=== PATIENT | female | born 1985 | race Hispanic/Latino ===

== ENCOUNTER 2017-11-06 13:41 | Emergency (ER) | payer SELFPAY ==
[~2017-11-06 13:41] MED LIST: CYAN500 PO; FERR325C PO; FOLI0.4T2 PO; INSU100V3 SQ; NPH,100V SQ; PANCREATIC ENZYMES PO
[2017-11-06 14:16] LABS: APPEARANCE,URINE Clear (CLEAR); BILIRUBIN,URINE Negative (NEGATIVE); COLOR,URINE Yellow (YELLOW); GLUCOSE, URINE (UA) >=1000 mg/dL (NEGATIVE); KETONES,URINE Negative (NEGATIVE); LEUKOCYTE ESTERASE ,URINE Trace (NEGATIVE); NITRATE,URINE Negative (NEGATIVE); OCCULT BLOOD,URINE Negative (NEGATIVE); PH,URINE 5.5 (5.0-8.0); PROTEIN,URINE Trace (NEGATIVE); UROBILINOGEN,URINE 0.2 mg/dL (0.2-1.0)
[2017-11-06 14:20] LABS: RBC,URINE 0-1 /HPF (0-1)
[2017-11-06 14:21] LABS: BACTERIA,URINE Rare /HPF (None Seen); SQUAMOUS EPITHELIAL CELL,UR Rare /HPF (0-2)
== END 2017-11-06 15:05 | disposition home or self-care (01) ==
LOC: EDH 13:41
DX: S31.41XD Laceration without foreign body of vagina and vulva, subsequent encounter (principal); E11.9 Type 2 diabetes mellitus without complications; Z91.013 Allergy to seafood; Z91.018 Allergy to other foods; Z98.890 Other specified postprocedural states; Z90.49 Acquired absence of other specified parts of digestive tract; Z87.891 Personal history of nicotine dependence; X58.XXXD Exposure to other specified factors, subsequent encounter
CPT/HCPCS: 81001

== ENCOUNTER 2018-03-26 20:35 | Inpatient (IN) | payer OTHER ==
[~2018-03-26] VITALS: Ht 154.9 cm; Wt 53.5 kg
[2018-03-26 20:56] LABS: ABG BASE EXCESS -6.2 mmol/L (-2.0-3.0); ABG HCO3 18.1 mmol/L (21.0-28.0); ABG OXYGEN SATURATION 97.1 % (95.0-99.0); ABG PCO2 31 mmHg (32-45)
[2018-03-26 21:13] LABS: BASOPHILS % (AUTO) 0.5 % (0.0-5.0); EOSINOPHILS % (AUTO) 1.1 % (0.0-8.0); HEMATOCRIT 27.2 % (36-48); LYMPHOCYTES % (AUTO) 7.9 % (21.0-51.0); MEAN CORPUSCULAR HEMOGLOBIN 27.5 pg (27.0-33.0); MEAN CORPUSCULAR HGB CONC 29.8 g/dL (32.0-36.0); MEAN CORPUSCULAR VOLUME 92.5 fL (79-99); MONOCYTES % (AUTO) 6.6 % (3.0-13.0); NEUTROPHILS % (AUTO) 83.9 % (40.0-77.0); PLATELET COUNT (AUTO) 276 K/uL (130-400); RED BLOOD CELL COUNT(AUTO) 2.94 MIL/uL (4.00-5.50); RED CELL DISTRIBUTION WIDTH 13.5 % (11.0-15.5); WHITE BLOOD COUNT (AUTO) 5.6 K/uL (4.8-10.8)
[2018-03-26] MEDS ORDERED: SODIUM CHLORIDE 0.9% 1000ML 2,000 ML IV ONE (21:13)
[2018-03-26] MEDS ORDERED: PROCHLORPERAZINE EDISYLATE 10 MG/2 ML VIAL ONE (21:13)
[2018-03-26 21:41] LABS: ALBUMIN 2.1 g/dL (3.5-5.0); BILIRUBIN,DIRECT 0.1 mg/dL (0.0-0.3); BILIRUBIN,TOTAL 0.5 mg/dL (0.2-1.0); CREATININE 1.5 mg/dL (0.5-1.5); POTASSIUM 5.7 mmol/L (3.5-5.1); TOTAL PROTEIN, SERUM 7.3 g/dL (6.0-8.3)
[2018-03-26] MEDS ORDERED: DEXTROSE 5 %-0.45 % NACL 1,000 ML IV PRN (23:29)
[2018-03-26] MEDS ORDERED: SODIUM CHLORIDE 0.9% 1000ML 1,000 ML IV SCH (23:29)
[2018-03-26] MEDS: SODIUM CHLORIDE 0.9% 1000ML 1,000 ML IV SCH (23:29)
[2018-03-26] MEDS ORDERED: INSULIN HUMULIN R 100 UNIT/ML 3ML IV SCH (23:30)
[2018-03-26] MEDS ORDERED: POTASSIUM CHLORIDE 10MEQ/100ML 100 ML IV PRN (23:30)
[2018-03-26] MEDS ORDERED: INSULIN HUMULIN R 100 UNIT/ML 3ML ONE (23:45)
[2018-03-26] MEDS ORDERED: ONDANSETRON HCL 4 MG/2 ML VIAL IV PRN (23:45)
[2018-03-26] MEDS ORDERED: ACETAMINOPHEN 325 MG TAB PO PRN (23:45)
[2018-03-26 23:52] LABS: PHOSPHORUS 3.2 mg/dL (2.5-4.9)
[2018-03-27] VITALS (12 sets, daily range): BP systolic 71–85; BP diastolic 43–55
[2018-03-27 00:03] LABS: ACETONE,BLOOD NEGATIVE (NEGATIVE)
[2018-03-27] MEDS ORDERED: INSULIN HUMULIN R 100 UNIT/ML 3ML ONE (00:05)
[2018-03-27] MEDS ORDERED: MAGNESIUM 2GM PREMIX 50ML 50 ML IV ONE ×2 (00:22→05:02)
[2018-03-27] MEDS ORDERED: CEFTRIAXONE SODIUM 1 GM ONE ×2 (00:23→01:53)
[2018-03-27 00:57] LABS: APPEARANCE,URINE Cloudy (CLEAR); BILIRUBIN,URINE Negative (NEGATIVE); COLOR,URINE Yellow (YELLOW); GLUCOSE, URINE (UA) >=1000 mg/dL (NEGATIVE); KETONES,URINE Negative (NEGATIVE); LEUKOCYTE ESTERASE ,URINE Negative (NEGATIVE); NITRATE,URINE Negative (NEGATIVE); OCCULT BLOOD,URINE Negative (NEGATIVE); PH,URINE 5.5 (5.0-8.0); PROTEIN,URINE POS 1+ (NEGATIVE); UROBILINOGEN,URINE 0.2 mg/dL (0.2-1.0)
[2018-03-27] MEDS ORDERED: AZITHROMYCIN 500MG+NS 250ML 250 ML IV SCH (01:00)
[2018-03-27 01:04] LABS: AMPHET/METH SCREEN,URINE NEGATIVE (NEGATIVE); BARBITURATE SCREEN, URINE NEGATIVE (NEGATIVE); BENZODIAZEPINES SCREEN,URINE POSITIVE (NEGATIVE); CANNABINOID SCREEN,URINE POSITIVE (NEGATIVE); COCAINE SCREEN,URINE NEGATIVE (NEGATIVE); OPIATE SCREEN,URINE NEGATIVE (NEGATIVE); PHENCYCLIDINE SCREEN,URINE NEGATIVE (NEGATIVE)
[2018-03-27 01:05] LABS: BACTERIA,URINE None Seen /HPF (None Seen); RBC,URINE None Seen /HPF (0-1); WBC,URINE None Seen /HPF (0-1)
[2018-03-27 01:06] LABS: AMORPHOUS SEDIMENT,UR Few /LPF (None Seen); SQUAMOUS EPITHELIAL CELL,UR Few /HPF (0-2)
[2018-03-27] MEDS ORDERED: AZITHROMYCIN 500MG+NS 250ML 250 ML IV ONE (01:51)
[2018-03-27 02:32] LABS: HEMATOCRIT 22.2 % (36-48); MEAN CORPUSCULAR HEMOGLOBIN 27.1 pg (27.0-33.0); MEAN CORPUSCULAR HGB CONC 31.5 g/dL (32.0-36.0); MEAN CORPUSCULAR VOLUME 85.9 fL (79-99); NUCLEATED RED BLOOD CELLS 0.1 % (0.0-0.19); PLATELET COUNT (AUTO) 223 K/uL (130-400); RED BLOOD CELL COUNT(AUTO) 2.59 MIL/uL (4.00-5.50); RED CELL DISTRIBUTION WIDTH 12.8 % (11.0-15.5); WHITE BLOOD COUNT (AUTO) 3.6 K/uL (4.8-10.8)
[2018-03-27 02:39] LABS: CREATININE 1.2 mg/dL (0.5-1.5); MAGNESIUM 1.6 mg/dL (1.80-2.40); POTASSIUM 3.3 mmol/L (3.5-5.1)
[2018-03-27 02:53] LABS: ABG BASE EXCESS -7.2 mmol/L (-2.0-3.0); ABG HCO3 17.1 mmol/L (21.0-28.0); ABG OXYGEN SATURATION 99.5 % (95.0-99.0); ABG PCO2 32 mmHg (32-45)
[2018-03-27] MEDS ORDERED: POTASSIUM PHOS 15 mMOL+NS250ML 250 ML IV SCH (03:00)
[2018-03-27 04:17] LABS: % IRON SATURATION 14.8 % (22-44)
[2018-03-27 04:23] LABS: BAND NEUTROPHILS % (MANUAL) 7 % (0-2); BASOPHILS % (MANUAL) 1 % (0-2); EOSINOPHILS % (MANUAL) 1 % (1-6); LYMPHOCYTES % (MANUAL) 17 % (22-44); SEGMENTED NEUTROPHILS % 74 % (40-70)
[2018-03-27 04:26] LABS: MAN.DIFF COMMENT-IMPRESSION MANUAL DIFFERENTIAL; PLATELET MORPHOLOGY COMMENT ADEQUATE
[2018-03-27] MEDS: SODIUM CHLORIDE 0.9% 1000ML 1,000 ML IV SCH ×4 (04:29→20:22)
[2018-03-27] MEDS ORDERED: POTASSIUM CHLORIDE 20MEQ/100ML 100 ML IV ONE (05:02)
[2018-03-27] MEDS ORDERED: LIDOCAINE HCL 1% 20 ML VIAL ONE (05:24)
[2018-03-27] MEDS ORDERED: INSULIN REGULAR, HUMAN 3ML 100 UNIT in SODIUM CHLORIDE 0.9% 99 ML IV PRN ×2 (06:45)
[2018-03-27] MEDS ORDERED: IBUPROFEN 800 MG TAB ONE (08:34)
[2018-03-27] MEDS ORDERED: FAMOTIDINE/PF 20 MG/2 ML VIAL IV ONE (08:36)
[2018-03-27] MEDS ORDERED: ENOXAPARIN SODIUM 30 MG/0.3 ML SQ ONE (08:36)
[2018-03-27] MEDS ORDERED: PREGABALIN 25 MG CAP ONE (08:37)
[2018-03-27] MEDS ORDERED: LIDOCAINE 5% TOPICAL PATCH TP ONE (08:37)
[2018-03-27] MEDS: FAMOTIDINE/PF 20 MG/2 ML VIAL IV SCH ×2 (09:00→20:07)
[2018-03-27] MEDS: ENOXAPARIN SODIUM 30 MG/0.3 ML SQ SCH (09:00)
[2018-03-27 09:26] LABS: HEMATOCRIT 22.7 % (36-48)
[2018-03-27 09:27] LABS: CREATININE 0.8 mg/dL (0.5-1.5); MAGNESIUM 1.9 mg/dL (1.80-2.40); PHOSPHORUS 1.8 mg/dL (2.5-4.9); POTASSIUM 3.6 mmol/L (3.5-5.1)
[2018-03-27] MEDS: IRON SUCROSE COMPLEX 100 MG in SODIUM CHLORIDE 0.9% 50 ML IV SCH (09:28)
[2018-03-27] MEDS: LIDOCAINE 5% TOPICAL PATCH TP SCH (09:28)
[2018-03-27] MEDS ORDERED: PREGABALIN 75 MG CAPSULE PO SCH (09:29)
[2018-03-27] MEDS ORDERED: EPOETIN ALFA 10,000 UNIT/ML VIAL SQ NR (09:30)
[2018-03-27] MEDS ORDERED: INSULIN GLARGINE 100 UNITS/ML 10 ML VIAL SQ SCH (09:45)
[2018-03-27] MEDS ORDERED: IBUPROFEN 800 MG TAB PO PRN (09:45)
[2018-03-27] MEDS ORDERED: SODIUM CHLORIDE 0.9% 50 ML IV ONE (10:04)
[2018-03-27] MEDS: PREGABALIN 25 MG CAP PO SCH (10:46)
[2018-03-27 10:52] LABS: ABG BASE EXCESS -6.3 mmol/L (-2.0-3.0); ABG HCO3 17.5 mmol/L (21.0-28.0); ABG OXYGEN SATURATION 98.3 % (95.0-99.0); ABG PCO2 30 mmHg (32-45)
[2018-03-27] MEDS: INSULIN LISPRO 100 UNIT/ML 3ML SQ SCH ×2 (11:30→17:00)
[2018-03-27] MEDS ORDERED: SODIUM CHLORIDE 0.9% 1000ML 1,000 ML IV ONE (11:36)
[2018-03-27] MEDS ORDERED: VANCOMYCIN PROTOCOL PER PHARMACY IV PRN (13:45)
[2018-03-27] MEDS: ASCORBIC ACID 500 MG TAB PO SCH (13:45)
[2018-03-27] MEDS ORDERED: MIDODRINE HCL 5 MG TABLET ONE (13:54)
[2018-03-27] MEDS: MIDODRINE HCL 5 MG TABLET PO SCH ×2 (14:00→20:07)
[2018-03-27] MEDS ORDERED: VANCOMYCIN 1GM+NS 250ML 250 ML IV ONE (14:56)
[2018-03-27] MEDS ORDERED: VANCOMYCIN 1GM+NS 250ML 250 ML IV SCH (15:00)
[2018-03-27] MEDS ORDERED: COMPOUND IV REFRIGERATED 1 EACH IVSOLN MISC PRN (15:15)
[2018-03-27 15:28] LABS: INR 1.02 (0.85-1.15); PARTIAL THROMBOPLASTIN TIME 35.8 SEC (26.3-35.5); PROTHROMBIN TIME 10.7 SEC (9.6-11.6)
[2018-03-27 15:33] LABS: CREATININE 0.7 mg/dL (0.5-1.5); MAGNESIUM 1.7 mg/dL (1.80-2.40)
[2018-03-27 16:22] LABS: ABG BASE EXCESS -8.2 mmol/L (-2.0-3.0); ABG HCO3 16.2 mmol/L (21.0-28.0); ABG OXYGEN SATURATION 98.1 % (95.0-99.0); ABG PCO2 31 mmHg (32-45)
[2018-03-27] MEDS ORDERED: INSREG SQ (16:26)
[2018-03-27] MEDS ORDERED: LIPA1CAP36 PO (16:26)
[2018-03-27] MEDS ORDERED: METO5TAB2 PO (16:26)
[2018-03-27] MEDS ORDERED: MIRT15TA6 PO (16:26)
[2018-03-27] MEDS ORDERED: [UNRECOGNIZED DRUG - REMARK] PO (16:26)
[2018-03-27] MEDS ORDERED: NPH,100V11 SQ (16:26)
[2018-03-27] MEDS: LIPASE/PROTEASE/AMYLASE 5000/17000/24000 PO SCH (17:00)
[2018-03-27] MEDS ORDERED: DEXTROSE 50%-WATER 25 GM/50 ML VIAL ONE (18:38)
[2018-03-27] MEDS: ZOSYN 3.375GM+NS 50ML 50 ML IV SCH (18:53)
[2018-03-27] MEDS: METOCLOPRAMIDE 10 MG/2 ML VIAL IVP SCH (18:53)
[2018-03-27] MEDS: INSULIN GLARGINE 100 UNITS/ML 10 ML VIAL SQ SCH (19:39)
[2018-03-27] MEDS ORDERED: CEFTRIAXONE SODIUM 1 GM IVP SCH (21:00)
[2018-03-27 21:34] LABS: CREATININE 0.6 mg/dL (0.5-1.5); MAGNESIUM 1.5 mg/dL (1.80-2.40); PHOSPHORUS 2.8 mg/dL (2.5-4.9); POTASSIUM 3.7 mmol/L (3.5-5.1)
[2018-03-27] MEDS: VANCOMYCIN 750MG + NS 250 ML IV SCH ×2 (22:12)
[2018-03-28] VITALS (28 sets, daily range): BP systolic 74–125; BP diastolic 42–75
[2018-03-28] MEDS: ZOSYN 3.375GM+NS 50ML 50 ML IV SCH ×3 (02:31→17:57)
[2018-03-28] MEDS: SODIUM CHLORIDE 0.9% 1000ML 1,000 ML IV SCH ×3 (02:43→17:57)
[2018-03-28 04:01] LABS: THYROID STIMULATING HORMONE 4.47 uIU/mL (0.36-3.74)
[2018-03-28] MEDS: METOCLOPRAMIDE 10 MG/2 ML VIAL IVP SCH ×3 (06:16→16:22)
[2018-03-28] MEDS: VANCOMYCIN 750MG + NS 250 ML IV SCH ×4 (06:16→16:22)
[2018-03-28] MEDS ORDERED: DEXTROSE 50%-WATER 25 GM/50 ML VIAL ONE (06:29)
[2018-03-28] MEDS: INSULIN LISPRO 100 UNIT/ML 3ML SQ SCH ×3 (06:40→16:22)
[2018-03-28] MEDS: LIPASE/PROTEASE/AMYLASE 5000/17000/24000 PO SCH ×3 (07:30→16:22)
[2018-03-28 08:13] LABS: MEAN CORPUSCULAR HEMOGLOBIN 26.3 pg (27.0-33.0); MEAN CORPUSCULAR HGB CONC 31.7 g/dL (32.0-36.0); PLATELET COUNT (AUTO) 298 K/uL (130-400); RED BLOOD CELL COUNT(AUTO) 2.45 MIL/uL (4.00-5.50); RED CELL DISTRIBUTION WIDTH 12.6 % (11.0-15.5); WHITE BLOOD COUNT (AUTO) 3.8 K/uL (4.8-10.8)
[2018-03-28 08:16] LABS: HEMATOCRIT 20.4 % (36-48)
[2018-03-28 08:29] LABS: ALBUMIN 1.4 g/dL (3.5-5.0); BILIRUBIN,TOTAL 0.1 mg/dL (0.2-1.0); CREATININE 0.5 mg/dL (0.5-1.5); MAGNESIUM 1.2 mg/dL (1.80-2.40); POTASSIUM 3.5 mmol/L (3.5-5.1); TOTAL PROTEIN, SERUM 5.3 g/dL (6.0-8.3)
[2018-03-28] MEDS: MIDODRINE HCL 5 MG TABLET PO SCH ×3 (09:00→19:39)
[2018-03-28] MEDS ORDERED: IOHEXOL-350 50ML VIAL IV ONE (10:00)
[2018-03-28] MEDS: LIDOCAINE 5% TOPICAL PATCH TP SCH (10:30)
[2018-03-28] MEDS: FAMOTIDINE/PF 20 MG/2 ML VIAL IV SCH ×2 (10:30→19:39)
[2018-03-28] MEDS: PREGABALIN 25 MG CAP PO SCH (12:19)
[2018-03-28] MEDS: MAGNESIUM 2GM PREMIX 50ML 50 ML IV PRN (12:19)
[2018-03-28] MEDS: MEGESTROL 400 MG/10 ML UDCUP PO SCH (12:19)
[2018-03-28] MEDS: ASCORBIC ACID 500 MG TAB PO SCH (12:32)
[2018-03-28] MEDS: ENOXAPARIN SODIUM 30 MG/0.3 ML SQ SCH (12:33)
[2018-03-28] MEDS: IRON SUCROSE COMPLEX 100 MG in SODIUM CHLORIDE 0.9% 50 ML IV SCH (14:02)
--- NOTE | 2018-03-28 16:05 | NUR ---
Unable to fax Vanco trough to Pharmacy, Called Pharmacist directly and reported trough, pharmacist will review chart.
--- NOTE | 2018-03-28 16:38 | NUR ---
RD Notification Patient with severe malnutrition with Hx of pancreatitis and DM. Patient NPO at time of screen;Rec to advance diet to 75gm CCD, Low Fat. Patient BMI 15.5, Alb 1.4; Rec protein supplementation secondary to severe malnutrition; 30mL ProMod TID. RD provided dietary education and handouts for DM diet and Pancreatitis. RD to continue to monitor. Please notify RD as nutritional concerns arise. Thank you. Addendum: 03/28/18 at [address] RD Amended: Links added.
--- NOTE | 2018-03-28 16:45 | NUR ---
Diet Education RD Provided Diabetes and Pancreatitis Diet education to patient and patient family. Patient with pertinent questions. RD provided answer to questions and reference materials and handouts for patient review. RD to follow-up. Please notify RD as nutritional concerns arise. Thank you. Addendum: 03/28/18 at [address] RD Amended: Links added.
[2018-03-28] MEDS: THIAMINE HCL 100 MG/ML 2ML VIAL IVP SCH (17:57)
[2018-03-28] MEDS: INSULIN GLARGINE 100 UNITS/ML 10 ML VIAL SQ SCH (20:26)
[2018-03-29] VITALS (24 sets, daily range): BP systolic 77–123; BP diastolic 49–74
[2018-03-29] MEDS: SODIUM CHLORIDE 0.9% 1000ML 1,000 ML IV SCH ×3 (00:41→21:04)
[2018-03-29] MEDS: VANCOMYCIN 750MG + NS 250 ML IV SCH ×4 (02:10→14:22)
[2018-03-29] MEDS: ZOSYN 3.375GM+NS 50ML 50 ML IV SCH ×3 (02:10→17:24)
[2018-03-29 05:44] LABS: HEMATOCRIT 21.5 % (36-48); MEAN CORPUSCULAR HEMOGLOBIN 27.2 pg (27.0-33.0); MEAN CORPUSCULAR HGB CONC 32.7 g/dL (32.0-36.0); MEAN CORPUSCULAR VOLUME 83.4 fL (79-99); NUCLEATED RED BLOOD CELLS 0.1 % (0.0-0.19); PLATELET COUNT (AUTO) 296 K/uL (130-400); RED BLOOD CELL COUNT(AUTO) 2.58 MIL/uL (4.00-5.50); RED CELL DISTRIBUTION WIDTH 12.6 % (11.0-15.5); WHITE BLOOD COUNT (AUTO) 3.5 K/uL (4.8-10.8)
[2018-03-29 05:56] LABS: CREATININE 0.7 mg/dL (0.5-1.5); MAGNESIUM 1.3 mg/dL (1.80-2.40); PHOSPHORUS 1.7 mg/dL (2.5-4.9); POTASSIUM 3.8 mmol/L (3.5-5.1)
[2018-03-29] MEDS: KETOROLAC TROMETHAMINE 15MG/ML IV SCH (06:05)
[2018-03-29] MEDS: METOCLOPRAMIDE 10 MG/2 ML VIAL IVP SCH ×3 (06:05→16:49)
[2018-03-29] MEDS: INSULIN LISPRO 100 UNIT/ML 3ML SQ SCH ×3 (06:08→16:50)
--- NOTE | 2018-03-29 07:00 | NUR ---
PT RECEIVED IN BED, AAOX4, NO ACUTE DISTRESS NOTED. PT WITH C/O IZABELA Addendum: 03/29/18 at 1510 by DAISY PARRISH RN RN PATIENT WITH C/O ABDOMINAL PAIN, STATES THE TORADOL SHE RECEIVED DID NOT HELP RELIEVE THE PAIN. INFORMED HER I WILL INFORM . HARESH DISCUSSED WITH PATIENT, INCLUDING OBTAINING ORDER TO REMOVE IRAHETA CATHETER AND PHYSICAL THERAPY EVALUATION. CALL RAMIREZ IS WITHIN REACH, WILL CONT TO MONITOR. ON TELE SR TO ST 100[facility].
[2018-03-29] MEDS: LIPASE/PROTEASE/AMYLASE 5000/17000/24000 PO SCH ×3 (07:46→16:49)
[2018-03-29] MEDS: FAMOTIDINE/PF 20 MG/2 ML VIAL IV SCH ×2 (07:47→21:07)
[2018-03-29] MEDS: IRON SUCROSE COMPLEX 100 MG in SODIUM CHLORIDE 0.9% 50 ML IV SCH ×2 (07:47→19:00)
[2018-03-29] MEDS: ASCORBIC ACID 500 MG TAB PO SCH (07:47)
--- NOTE | 2018-03-29 08:43 | NUR ---
MD ROUNDS DR. SANTACRUZ IN TO SEE PATIENT. POC DISCUSSED WITH MD. ADDRESSED F/C, SEVERE ABDOMINAL PAIN 11/21 PER PATIENT. STATES TORADOL DID NOT WORK TO RELIEVE PAIN. PATIENT ASKING FOR DILAUDID 1 MG IV. NEW ORDERS RECEIVED TO BE CARRIED OUT.
--- NOTE | 2018-03-29 08:59 | NUR ---
DC PLAN VISITED WITH PATIENT. PATIENT LIVES WITH SPOUSE AND MOTHER. PATIENT HAS WALKER AND SHOWER CHAIR AVAILABLE. NO SERVICES. FEELS SAFE TO RETURN HOME. Addendum: 03/29/18 at 0900 by JACOBY CARIAS RN CM Amended: Links added.
[2018-03-29] MEDS ORDERED: HYDROMORPHONE HCL 2 MG/ML VIAL IVP PRN (09:00)
[2018-03-29] MEDS: ENOXAPARIN SODIUM 30 MG/0.3 ML SQ SCH (09:00)
--- NOTE | 2018-03-29 09:00 | NUR ---
IRAHETA CATHETER REMOVED. PT IS D/T VOID BY 1500.
[2018-03-29] MEDS: PREGABALIN 25 MG CAP PO SCH (09:35)
[2018-03-29] MEDS: LIDOCAINE 5% TOPICAL PATCH TP SCH (09:35)
[2018-03-29] MEDS: MEGESTROL 400 MG/10 ML UDCUP PO SCH (09:36)
[2018-03-29] MEDS: MAGNESIUM OXIDE 400 MG TABLET PO SCH (09:36)
[2018-03-29] MEDS: MIDODRINE HCL 5 MG TABLET PO SCH ×3 (09:36→21:07)
[2018-03-29] MEDS: THIAMINE HCL 100 MG/ML 2ML VIAL IVP SCH (09:36)
[2018-03-29] MEDS: NEUTRA-PHOS PACKET 1 EACH PO SCH ×4 (09:38→21:11)
[2018-03-29] MEDS: MAGNESIUM 2GM PREMIX 50ML 50 ML IV PRN (09:39)
[2018-03-29] MEDS: HYDROMORPHONE 1 MG/1 ML AMP IVP PRN ×2 (10:18→18:45)
--- NOTE | 2018-03-29 10:29 | NUR ---
[facility] CONSULT PATIENT ASSESSED ORDERED. PATIENT WITH DRY, FLAKY SCABS TO SCALP LIKELY TINEA CAPITUS. SPOKE WITH PATIENT'S NURSE, ADIA GONZALES, WHO WILL DISCUSS WITH MD FOR TREATMENT. PATIENT ALSO HAS REDNESS, RASH TO PERINEUM EXTENDING NEAR COCCYX AREA WHICH SHE RELATES TO CONSTANT DIARRHEA. SACRUM AND COCCYX ARE PINK BUT BLANCHABLE; NO OPEN ULCER IDENTIFIED. [facility] RECOMMENDATION FOR ALLEVYN LIFE FOAM FOR PROTECTIVE MEASURE.
[2018-03-29] MEDS: ERGOCALCIFEROL (VITAMIN D2) 50,000 UNIT CAPSULE PO SCH (13:41)
--- NOTE | 2018-03-29 17:39 | NUR ---
SPOKE WITH DR. GARCÍA REGARDING DR. SANTACRUZ CONCERNS REGARDING FREQUENT LOOSE STOOLS. POSSIBLE EUS AND COLONOSCOPY ON SUNDAY PENDING FECAL ELASTASE LAB. STATES SHE WILL BE IN LATER TODAY TO SEE PATIENT.
--- NOTE | 2018-03-29 19:25 | NUR ---
DR RICKY GARCÍA INTO SEE PT, SEE ORDERS.
[2018-03-29] MEDS: INSULIN GLARGINE 100 UNITS/ML 10 ML VIAL SQ SCH (21:00)
--- NOTE | 2018-03-29 21:00 | NUR ---
ASSESSMENT PT RESTING QUIETLY IN BED. FAMILY AT BEDSIDE. PT AAOX4. IVF INFUSING WITHOUT DIFFICULTY. NSR, ON ROOM AIR. CALLBELL REVIEWED WITHIN REACH. WHITE BOARD UP-DATE. ASSESSMENT COMPLETED, SEE FLOW SHEET.
[2018-03-30] VITALS (17 sets, daily range): BP systolic 77–116; BP diastolic 47–68
--- NOTE | 2018-03-30 | NUR ---
ASSESSMENT PT RESTING QUIETLY IN BED. FAMILY AT BEDSIDE. PT AAOX4. IVF INFUSING WITHOUT DIFFICULTY. NSR, ON ROOM AIR. CALLBELL WITHIN REACH. ASSESSMENT COMPLETED, SEE FLOW SHEET.
[2018-03-30] MEDS ORDERED: LIPASE/PROTEASE/AMYLASE 5000/17000/24000 PO PRN (01:00)
[2018-03-30] MEDS: HYDROMORPHONE 1 MG/1 ML AMP IVP PRN ×3 (02:52→17:52)
[2018-03-30] MEDS: VANCOMYCIN 750MG + NS 250 ML IV SCH ×4 (02:54→15:00)
[2018-03-30] MEDS: SODIUM CHLORIDE 0.9% 1000ML 1,000 ML IV SCH ×5 (02:57→23:45)
[2018-03-30] MEDS: ZOSYN 3.375GM+NS 50ML 50 ML IV SCH ×3 (02:57→21:21)
[2018-03-30 04:03] LABS: RED BLOOD CELL COUNT(AUTO) 2.58 MIL/uL (4.00-5.50); WHITE BLOOD COUNT (AUTO) 2.9 K/uL (4.8-10.8)
[2018-03-30 04:04] LABS: HEMATOCRIT 21.5 % (36-48); MEAN CORPUSCULAR HEMOGLOBIN 26.5 pg (27.0-33.0); MEAN CORPUSCULAR HGB CONC 31.8 g/dL (32.0-36.0); MEAN CORPUSCULAR VOLUME 83.3 fL (79-99); NUCLEATED RED BLOOD CELLS 0.1 % (0.0-0.19); PLATELET COUNT (AUTO) 360 K/uL (130-400)
[2018-03-30 04:18] LABS: ALBUMIN 1.4 g/dL (3.5-5.0); BILIRUBIN,TOTAL 0.1 mg/dL (0.2-1.0); CREATININE 0.6 mg/dL (0.5-1.5); MAGNESIUM 1.4 mg/dL (1.80-2.40); PHOSPHORUS 2.7 mg/dL (2.5-4.9); POTASSIUM 4.6 mmol/L (3.5-5.1); TOTAL PROTEIN, SERUM 5.5 g/dL (6.0-8.3)
[2018-03-30 04:42] LABS: BAND NEUTROPHILS % (MANUAL) 3 % (0-2); LYMPHOCYTES % (MANUAL) 20 % (22-44); MAN.DIFF COMMENT-IMPRESSION MANUAL DIFFERENTIAL; MONOCYTES % (MANUAL) 3 % (2-9); PLATELET MORPHOLOGY COMMENT ADEQUATE; SEGMENTED NEUTROPHILS % 74 % (40-70)
[2018-03-30] MEDS: KETOROLAC TROMETHAMINE 15MG/ML IV SCH (06:00)
[2018-03-30] MEDS: MAGNESIUM 2GM PREMIX 50ML 50 ML IV PRN (06:12)
[2018-03-30] MEDS: METOCLOPRAMIDE 10 MG/2 ML VIAL IVP SCH ×3 (06:51→17:49)
[2018-03-30] MEDS: INSULIN LISPRO 100 UNIT/ML 3ML SQ SCH ×3 (06:52→17:54)
--- NOTE | 2018-03-30 07:10 | NUR ---
REPORT REPORT GIVEN TO ADIA GONZALES
--- NOTE | 2018-03-30 07:36 | NUR ---
PT RECEIVED IN BED, AAOX4, NO ACUTE DISTRESS NOTED. PT ASSISTED TO BEDSIDE COMMODE, VOIDED WITH SMALL PARTICLES OF BM. TELE WITH WITH SR 70-80s. PT STATES SHE WOULD LIKE TO GO BACK TO BED, SHE FEELS THE DILAUDID EFFECT STILL IN HER SYSTEM. POC DISCUSSED WITH PATIENT, STATES DR. GARCÍA SAW HER LAST NIGHT AND PLANS FOR EUS/COLONOSCOPY POSSIBLY TOMORROW. INSTRUCTED PT TO CALL FOR ASSISTANCE IF NEEDED, CALL RAMIREZ IS WITHIN HER REACH. WILL CONT TO MONITOR. ASSESS,ENT DOCUMENTED.
[2018-03-30] MEDS: LIPASE/PROTEASE/AMYLASE 5000/17000/24000 PO SCH ×3 (08:13→17:48)
[2018-03-30] MEDS: ENOXAPARIN SODIUM 30 MG/0.3 ML SQ SCH (09:00)
[2018-03-30] MEDS: MEGESTROL 400 MG/10 ML UDCUP PO SCH (09:00)
[2018-03-30] MEDS: FAMOTIDINE/PF 20 MG/2 ML VIAL IV SCH ×2 (09:03→21:21)
[2018-03-30] MEDS: ASCORBIC ACID 500 MG TAB PO SCH (09:03)
[2018-03-30] MEDS: THIAMINE HCL 100 MG/ML 2ML VIAL IVP SCH (09:03)
[2018-03-30] MEDS: MIDODRINE HCL 5 MG TABLET PO SCH ×3 (09:03→21:21)
[2018-03-30] MEDS: NEUTRA-PHOS PACKET 1 EACH PO SCH ×3 (09:04→21:21)
[2018-03-30] MEDS: PREGABALIN 25 MG CAP PO SCH (09:04)
[2018-03-30] MEDS: MAGNESIUM OXIDE 400 MG TABLET PO SCH (09:05)
[2018-03-30] MEDS: LIDOCAINE 5% TOPICAL PATCH TP SCH (09:05)
--- NOTE | 2018-03-30 10:45 | NUR ---
Ntr note/order for Re-education on diet. ALTA visited with nrs: Fernanda on MD's diet order for pt. BRYCEN discussed Gluten free diet options w/ pt and wrote a list of food choices avail during admission on pt's whiteboard. Pt and RDN discussed gluten free snack options and created a list for staff to follow. Pt complained of feeling hungry despite food served. Pt stated she consumes ntr supplements at home and willing to consume during admission. RDN to order Glucerna TID one per meal. Pt's dietary preferences communicated to NRS and diet staff. RDN to f/u and avail for future concerns/questions. Addendum: 03/30/18 at [address] RD Amended: Links added.
[2018-03-30] MEDS: IRON SUCROSE COMPLEX 100 MG in SODIUM CHLORIDE 0.9% 50 ML IV SCH (13:25)
--- NOTE | 2018-03-30 14:33 | NUR ---
MED ADMINISTRATION Verified with pt's primary nurse administration of megapoly. Pt had refused med this AM when other meds were administered even though med had been scanned as administered. Med was not given with other meds but will be administered now at pt's request.
[2018-03-30 14:51] LABS: BASOPHILS % (AUTO) 1.1 % (0.0-5.0); EOSINOPHILS % (AUTO) 4.4 % (0.0-8.0); HEMATOCRIT 24.6 % (36-48); MEAN CORPUSCULAR HEMOGLOBIN 26.7 pg (27.0-33.0); MEAN CORPUSCULAR HGB CONC 31.9 g/dL (32.0-36.0); MEAN CORPUSCULAR VOLUME 83.6 fL (79-99); MONOCYTES % (AUTO) 6.1 % (3.0-13.0); NEUTROPHILS % (AUTO) 64.4 % (40.0-77.0); NUCLEATED RED BLOOD CELLS 0.1 % (0.0-0.19); PLATELET COUNT (AUTO) 471 K/uL (130-400); RED BLOOD CELL COUNT(AUTO) 2.95 MIL/uL (4.00-5.50); RED CELL DISTRIBUTION WIDTH 13.1 % (11.0-15.5); WHITE BLOOD COUNT (AUTO) 4.4 K/uL (4.8-10.8)
[2018-03-30 15:58] LABS: CREATININE 0.6 mg/dL (0.5-1.5)
--- NOTE | 2018-03-30 16:23 | NUR ---
PT TRANSFERRED TO ROOM 313. REPORT GIVEN TO KAMRAN GONZALES. ALL BELONGINGS TAKEN WITH PATIENT.
--- NOTE | 2018-03-30 16:29 | NUR ---
transfer patient arrived via stretcher. report received Fernanda alvarado via phone prior to arrival. Patient arrived, is awake, alert and oriented to person place and time; patient is pending one unit PRBC today and EGD/Colonoscopy/EUS in am. NO consent obtained by transferring floor
[2018-03-30] MEDS ORDERED: PEG 3350/NA SULF,BICARB,CL/KCL 4000 ML SOLN PO SCH (17:00)
[2018-03-30] MEDS: HYDROCODONE/ACETAMINOPHEN 5/325 MG TAB PO PRN (17:49)
[2018-03-30 18:50] LABS: INR 0.95 (0.85-1.15)
--- NOTE | 2018-03-30 19:30 | NUR ---
ROUNDS REPORT RECEIVED FROM JANET PARIKH. NURSE'S ROUNDS DONE. PT STILL NOT TAKING MUCH OF GOLYTELY. INSTRUCTED TO DRINK SINCE SHE WILL BE NPO POST MIDNIGHT. FAMILY IN ROOM ASSISTING ON GIVING MEDS.
[2018-03-30] MEDS: INSULIN GLARGINE 100 UNITS/ML 10 ML VIAL SQ SCH (21:00)
--- NOTE | 2018-03-30 21:25 | NUR ---
MEDS DUE MEDS ADMINISTERED, TOLERATED WELL. GOLYTELY GI PREP IS BEING TOLERATED WELL BY PT. ENCOURAGED TO DRINK MUCH SHE CAN AND INSTRUCTED TO BE NPO POST MIDNIGHT. PT VERBALIZES UNDERSTANDING. FAMILY AT BEDSIDE, IN ATTENDANCE TO NEEDS AT THIS TIME.
--- NOTE | 2018-03-30 23:15 | NUR ---
PRBC CONSENT FOR EUS SIGNED BY PT, PLACED IN CHART. CHECKED ONE UNIT OF PRBC WITH MARIANO SOLARES, THEN STARTED TRANSFUSION. V/S MONITORED, NOTED TEMPERATURE TO BE VERY LOW AT 95 DEGREES ON RE-CHECK. KEPT PT WARM AND DRY. WILL MONITOR CLOSELY.
--- NOTE | 2018-03-30 23:35 | NUR ---
RE-ASSESS PT TOLERATING BLOOD TRANSFUSION WELL. PT TRYING TO FINISH GOLYTELY AT THIS TIME. BP AND TEMPERATURE LOW AT BP=81/73, TEMPERATURE=95 DEGREES BUT PT ISM ASYMPTOMATIC AT THIS TIME. WILL MONITOR CLOSELY.
[2018-03-31] VITALS (26 sets, daily range): BP systolic 85–166; BP diastolic 50–72
[2018-03-31] MEDS: HYDROCODONE/ACETAMINOPHEN 5/325 MG TAB PO PRN ×2 (01:02→18:05)
--- NOTE | 2018-03-31 01:02 | NUR ---
PAIN PT IS CRYING AND COMPLAINTS OF PAINS ON HER ABDOMEN AND SACRUM. NORCO AND MOTRIN IS THE ONLY AVAILABLE MEDS AT THIS TIME FOR PAIN. PT AND FAMILY INSISTED THAT MD HAD ALREADY CHANGED THE FREQUENCY OF PAIN MEDS. EXPLAINED THAT NO ORDER WAS PLACED BUT ASSURED PT AND FAMILY THAT MD WILL BE PAGED. PAGED SHAUN, HEAD NECK SURGEON SPICE GRINDER FOR HOSPITALIST, VIA ANSWERING SERVICE. AWAITING CALL BACK.
--- NOTE | 2018-03-31 01:25 | NUR ---
SUPERVISOR HOT STRIP MILL VHIC,SUPERVISOR HOT STRIP MILL BABYSITTER FOR THE NIGHT CALLED BACK, REFERRED PT'S CRYING FOR PAIN. NEW MED ORDER GIVEN. PLEASE REFER TO CPOE. WILL MEDICATE PT.
[2018-03-31] MEDS ORDERED: KETOROLAC TROMETHAMINE 15MG/ML IV STA (01:31)
--- NOTE | 2018-03-31 02:10 | NUR ---
FINISHED PT AWAKENED AND STARTED CRYING AGAIN. VERBALIZES PAIN TO BACK AREA. ASKED ABOUT LIDODERM PATCH AND EXPLAINED THAT IT NEEDS TO BE ON ONLY FOR 12 HOURS THAT IS WHY IT WAS REMOVED ALREADY LAST NIGHT. ASKED FOR ALLEVYN PAD. ASSURED TO PLACE ON HER ONCE DIAPER IS CHANGED AGAIN. BLOOD TRANSFUSION COMPLETED, PT TOLERATED WELL. V/S MONITORED, PT REFUSED TEMPERATURE CHECK BECAUSE SHE WANTS MORE PAIN MEDS. EXPLAINED THAT MED WAS ALREADY GIVEN TO HER. FAMILY IN ROOM ASSISTING TO CALM PT DOWN. WILL MONITOR CLOSELY.
[2018-03-31] MEDS: VANCOMYCIN 750MG + NS 250 ML IV SCH ×2 (02:52)
--- NOTE | 2018-03-31 02:52 | NUR ---
HELD VANCO DOSE HELD AT THIS TIME PER PHARMACY PROTOCOL FOR VANCO THROUGH OF 23.4. PT WAS BEING BATHED BY PCP, PT CRYING HER BRENDA-AREA IS VERY TENDER,SWOLLEN AND RED. PT WAS CLEANED AND BARRIER CREAM APPLIED. ALLEVYN PLACED ON SACRAL AREA. RE-POSITIONED COMFORTABLY IN BED. WILL RE-ASSESS PT.
[2018-03-31] MEDS: ZOSYN 3.375GM+NS 50ML 50 ML IV SCH ×3 (03:04→19:07)
[2018-03-31] MEDS: SODIUM CHLORIDE 0.9% 1000ML 1,000 ML IV SCH ×3 (05:21→20:49)
[2018-03-31] MEDS: METOCLOPRAMIDE 10 MG/2 ML VIAL IVP SCH ×3 (05:49→17:51)
--- NOTE | 2018-03-31 05:50 | NUR ---
DRAW PT IS FAIRLY ASLEEP. NO DISTRESS NOTED. BLOOD DRAWN FROM PICC LINE, SENT TO LAB. BOTH PORTS FLUSHES WELL WITH GOOD BLOOD RETURN. KEPT NPO FOR PROCEDURE. FOR MORE CARE.
[2018-03-31 06:36] LABS: BASOPHILS % (AUTO) 0.8 % (0.0-5.0); EOSINOPHILS % (AUTO) 4.4 % (0.0-8.0); HEMATOCRIT 27.3 % (36-48); LYMPHOCYTES % (AUTO) 23.9 % (21.0-51.0); MEAN CORPUSCULAR HEMOGLOBIN 27.1 pg (27.0-33.0); MEAN CORPUSCULAR HGB CONC 32.5 g/dL (32.0-36.0); MEAN CORPUSCULAR VOLUME 83.4 fL (79-99); MONOCYTES % (AUTO) 6.6 % (3.0-13.0); NEUTROPHILS % (AUTO) 64.3 % (40.0-77.0); NUCLEATED RED BLOOD CELLS 0.1 % (0.0-0.19); PLATELET COUNT (AUTO) 362 K/uL (130-400); RED BLOOD CELL COUNT(AUTO) 3.27 MIL/uL (4.00-5.50); RED CELL DISTRIBUTION WIDTH 12.9 % (11.0-15.5); WHITE BLOOD COUNT (AUTO) 2.9 K/uL (4.8-10.8)
[2018-03-31] MEDS: INSULIN LISPRO 100 UNIT/ML 3ML SQ SCH ×3 (06:43→17:53)
[2018-03-31 06:51] LABS: CREATININE 0.4 mg/dL (0.5-1.5); POTASSIUM 4.6 mmol/L (3.5-5.1)
[2018-03-31 07:20] LABS: EOSINOPHILS % (MANUAL) 5 % (1-6); LYMPHOCYTES % (MANUAL) 14 % (22-44); MAN.DIFF COMMENT-IMPRESSION MANUAL DIFFERENTIAL; MONOCYTES % (MANUAL) 4 % (2-9); PLATELET MORPHOLOGY COMMENT ADEQUATE; SEGMENTED NEUTROPHILS % 77 % (40-70)
--- NOTE | 2018-03-31 07:20 | NUR ---
GI MAYANK FROM GI LAB IN TO BRING PT DOWN FOR PROCEDURE. FOR MORE CARE.
[2018-03-31] MEDS ORDERED: LIDOCAINE HCL-MPF 2% 5ML VIAL ONE (08:15)
[2018-03-31] MEDS ORDERED: PROPOFOL 10 MG/ML 20ML VIAL IV ONE (08:15)
[2018-03-31] MEDS ORDERED: EPHEDRINE SULFATE 50 MG/ML AMPULE ONE (08:42)
[2018-03-31] MEDS ORDERED: SUCCINYLCHOLINE CHLORIDE 20 MG/ML 10 ML VIAL ONE (08:57)
[2018-03-31] MEDS: THIAMINE HCL 100 MG/ML 2ML VIAL IVP SCH (09:00)
--- NOTE | 2018-03-31 09:30 | NUR ---
0905 - NS 200MLS IV BOLUS GIVEN FOR LOW BP, TOLERATES WELL. 0930 - VINCENT APARICIO NOTIFIED OF PT'S CURRENT V/S. NO NEW ORDERS THIS TIME, OK TO TRANSFER. PT MORE AWAKE AND ALERT. Addendum: 03/31/18 at 0937 by CATIA VILLANUEVA RN RN Amended: Links added.
[2018-03-31] MEDS ORDERED: VANCOMYCIN 750MG + NS 250 ML IV SCH ×2 (11:00)
[2018-03-31] MEDS: THIAMINE HCL 100 MG TABLET PO SCH (12:11)
[2018-03-31] MEDS: IRON SUCROSE COMPLEX 100 MG in SODIUM CHLORIDE 0.9% 50 ML IV SCH (12:15)
[2018-03-31] MEDS: FAMOTIDINE/PF 20 MG/2 ML VIAL IV SCH ×2 (12:15→20:49)
[2018-03-31] MEDS: PREGABALIN 25 MG CAP PO SCH (12:16)
[2018-03-31] MEDS: LIPASE/PROTEASE/AMYLASE 5000/17000/24000 PO SCH ×2 (12:17→17:51)
[2018-03-31] MEDS: MIDODRINE HCL 5 MG TABLET PO SCH ×3 (12:17→20:49)
[2018-03-31] MEDS: ASCORBIC ACID 500 MG TAB PO SCH (12:17)
[2018-03-31] MEDS: MAGNESIUM OXIDE 400 MG TABLET PO SCH (12:17)
[2018-03-31] MEDS: MEGESTROL 400 MG/10 ML UDCUP PO SCH (12:18)
[2018-03-31] MEDS: ENOXAPARIN SODIUM 30 MG/0.3 ML SQ SCH (12:22)
[2018-03-31] MEDS: LIDOCAINE 5% TOPICAL PATCH TP SCH (12:43)
[2018-03-31] MEDS: HYDROMORPHONE 1 MG/1 ML AMP IVP PRN ×2 (12:49→21:51)
[2018-03-31] MEDS: VANCOMYCIN 500MG+NS 100ML 100 ML IV SCH (20:50)
--- NOTE | 2018-03-31 20:50 | NUR ---
MEDS CHECKED PT'S PORT PICC LINE FOR BLOOD DRAW, BOTH PORTS FLUSHES WELL WITH GOOD BLOOD RETURN. DUE MEDS ADMINISTERED, TOLERATED WELL. PT ASKS FOR WHEN SHE COULD TAKE HER IV DILAUDID AND WAS INFORMED THAT MECHANICAL ENGINEERING TECHNOLOGIST WILL CHECK ON ORDERS AND WILL RE-CHECK BP BEFORE ADMINISTRATION SINCE BP IS LOW AT 87/72. PT AND FAMILY VERBALIZES UNDERSTANDING.
[2018-03-31] MEDS: INSULIN GLARGINE 100 UNITS/ML 10 ML VIAL SQ SCH (20:59)
--- NOTE | 2018-03-31 21:45 | NUR ---
RE-CHECK PT'S BP RE-CHECKED=93/70. PT'S DILAUDID DOSE ADMINISTERED FOR COMPLAINTS OF GENERALIZED PAINS. KEPT RESTED AND COMFORTABLE. CALL LIGHT WITHIN REACH. WILL RE-ASSESS PT. FAMILY AT BEDSIDE IN ATTENDANCE WITH PT'S NEEDS.
[2018-04-01] VITALS (7 sets, daily range): BP systolic 92–112; BP diastolic 58–84
[2018-04-01] MEDS: ZOSYN 3.375GM+NS 50ML 50 ML IV SCH ×3 (02:10→18:52)
--- NOTE | 2018-04-01 02:10 | NUR ---
MEDS PT RESTING WELL, FAIRLY ASLEEP WITH RESPIRATIONS EVEN AND UNLABORED. NO NOTED DISTRESS. DUE MEDS ADMINISTERED. KEPT UNDISTURBED FOR NOW. WILL CONTINUE TO MONITOR.
[2018-04-01] MEDS: SODIUM CHLORIDE 0.9% 1000ML 1,000 ML IV SCH ×5 (03:48→21:43)
[2018-04-01] MEDS: METOCLOPRAMIDE 10 MG/2 ML VIAL IVP SCH ×3 (06:24→16:47)
[2018-04-01] MEDS: HYDROMORPHONE 1 MG/1 ML AMP IVP PRN ×3 (06:25→23:39)
--- NOTE | 2018-04-01 06:25 | NUR ---
MEDS PT COMPLAINTS OF GENERALIZED PAINS. BLOOD DRAWN FROM PICC LINE, SENT TO LAB FOR ANALYSIS. BOTH PORTS FLUSHES WELL WITH GOOD BLOOD RETURN. DUE MEDS ADMINISTERED AND DILAUDID GIVEN FOR PAINS. KEPT COMFORTABLE IN BED. CALL LIGHT WITHIN REACH. FAMILY AT BEDSIDE. FOR MORE CARE. WILL RE-ASSESS PT.
[2018-04-01] MEDS: INSULIN LISPRO 100 UNIT/ML 3ML SQ SCH ×3 (06:26→16:47)
[2018-04-01 06:55] LABS: BASOPHILS % (AUTO) 1.2 % (0.0-5.0); EOSINOPHILS % (AUTO) 2.7 % (0.0-8.0); HEMATOCRIT 26.1 % (36-48); LYMPHOCYTES % (AUTO) 23.4 % (21.0-51.0); MEAN CORPUSCULAR HGB CONC 32.1 g/dL (32.0-36.0); MEAN CORPUSCULAR VOLUME 83.9 fL (79-99); MONOCYTES % (AUTO) 6.9 % (3.0-13.0); NEUTROPHILS % (AUTO) 65.8 % (40.0-77.0); NUCLEATED RED BLOOD CELLS 0.1 % (0.0-0.19); PLATELET COUNT (AUTO) 331 K/uL (130-400); RED BLOOD CELL COUNT(AUTO) 3.11 MIL/uL (4.00-5.50); RED CELL DISTRIBUTION WIDTH 13.3 % (11.0-15.5); WHITE BLOOD COUNT (AUTO) 3.5 K/uL (4.8-10.8)
[2018-04-01 07:17] LABS: CREATININE 0.7 mg/dL (0.5-1.5); MAGNESIUM 1.1 mg/dL (1.80-2.40); POTASSIUM 4.8 mmol/L (3.5-5.1)
[2018-04-01] MEDS: FAMOTIDINE/PF 20 MG/2 ML VIAL IV SCH ×2 (08:35→20:46)
[2018-04-01] MEDS: MEGESTROL 400 MG/10 ML UDCUP PO SCH (08:35)
[2018-04-01] MEDS: PREGABALIN 25 MG CAP PO SCH (08:35)
[2018-04-01] MEDS: LIPASE/PROTEASE/AMYLASE 5000/17000/24000 PO SCH ×3 (08:36→16:49)
[2018-04-01] MEDS: LIDOCAINE 5% TOPICAL PATCH TP SCH (08:36)
[2018-04-01] MEDS: THIAMINE HCL 100 MG TABLET PO SCH (08:39)
[2018-04-01] MEDS: VANCOMYCIN 500MG+NS 100ML 100 ML IV SCH ×2 (08:39→21:43)
[2018-04-01] MEDS: MAGNESIUM OXIDE 400 MG TABLET PO SCH (08:39)
[2018-04-01] MEDS: MIDODRINE HCL 5 MG TABLET PO SCH ×3 (08:40→20:46)
[2018-04-01] MEDS: ASCORBIC ACID 500 MG TAB PO SCH (08:40)
[2018-04-01] MEDS: ENOXAPARIN SODIUM 30 MG/0.3 ML SQ SCH (08:43)
[2018-04-01] MEDS: THIAMINE HCL 100 MG/ML 2ML VIAL IVP SCH (08:45)
[2018-04-01] MEDS: IRON SUCROSE COMPLEX 100 MG in SODIUM CHLORIDE 0.9% 50 ML IV SCH (08:45)
[2018-04-01] MEDS ORDERED: COMPOUND IV MISC 1 EACH IVSOLN MISC PRN (12:00)
[2018-04-01] MEDS ORDERED: HYDROCORTISONE 1% 28.35 GM CREAM TP PRN (12:30)
--- NOTE | 2018-04-01 12:55 | NUR ---
HOSPITALIST SERGIO LUIS CAME ROUNDING ON THE PATIENT, SHE WAS NOTIFIED OF THE PERINEAL RASH. NEW ORDER WAS RECEIVED FOR ZINC OINTMENT WITH CORTIZONE.
[2018-04-01] MEDS: ZINC OXIDE OINT 30GM TUBE TP SCH ×3 (14:11→20:51)
--- NOTE | 2018-04-01 14:43 | NUR ---
SENIOR CORE JAVA DEVELOPER NOTIFIED ME THAT THE PATIENT IS REQUESTING BREAD ALTHOUGH SHE HAD REPORTED GLUTEN ALLERGY. I CONFIRM WITH THE PATIENT AND SHE SAID THAT SHE CAN HAVE BREAD WITHOUT GRAVY, BECAUSE GRAVY IS WHAT MAKES HER SICK.
--- NOTE | 2018-04-01 16:11 | NUR ---
Nutrition f/u: pt continues on CCD 75gm, low fat diet with PROMOD and snacks TID. Pt recently educated on pancreatitis, gluten free diet. Pt continues to have multiple dietary questions, all questions answered by Dietitian. Pt requesting bread with her meals, BRYCE has explained to pt bread is a gluten item, however pt continued to request item stating she will monitor tolerance and will let Nursing know if diet changes need to be made. Nurse Ca has been made aware of pt's request. [facility] 03/31. Alb 1.4. Addendum: 04/01/18 at [address] Amended: Links added.
[2018-04-01] MEDS: HYDROCODONE/ACETAMINOPHEN 5/325 MG TAB PO PRN (20:47)
[2018-04-01] MEDS: INSULIN GLARGINE 100 UNITS/ML 10 ML VIAL SQ SCH (20:50)
--- NOTE | 2018-04-01 20:50 | NUR ---
DRAWN BLOOD DRAWN FROM PICC LINE, BOTH PORTS ARE FLUSHING WELL WITH GOOD BLOOD RETURN. SENT SPECIMEN TO LAB FOR ANALYSIS. PT COMPLAINTS OF GENERALIZED PAINS. DUE MEDS ADMINISTERED AND NORCO GIVEN FOR PAINS, TOLERATED WELL. PCP IN TO CHANGE PT'S DIAPER. ZINC OXIDE AND HYDROCORTISONE CREAMS APPLIED TO BRENDA-AREA. POSITIONED COMFORTABLY IN BED WITH HOB ELEVATED. CALL LIGHT WITHIN REACH. FAMILY AT BEDSIDE. WILL RE-ASSESS PT.
--- NOTE | 2018-04-01 21:46 | NUR ---
MANGO STOUT FLAME ANNEALING MACHINE SETTER FOR HOSPITALIST IN TO SEE PTS AND REFERRED PT'S IVF. NEW IVF RATE OF 75CC/HR ORDERED. CHANGED IVF RATE AT THIS TIME.
[2018-04-01] MEDS: MAGNESIUM 2GM PREMIX 50ML 50 ML IV PRN (22:38)
[2018-04-02] MEDS: ZOSYN 3.375GM+NS 50ML 50 ML IV SCH ×3 (02:05→21:04)
--- NOTE | 2018-04-02 02:10 | NUR ---
MEDS PT IS RESTING WELL, FAIRLY ASLEEP. NO COMPLAINTS VERBALIZED. DUE IV ANTIBIOTICS INFUSED. KEPT RESTED. CALL LIGHT WITHIN REACH. FAMILY ASLEEP AT BEDSIDE.
[2018-04-02 04:59] VITALS: BP 105/74
[2018-04-02 05:27] LABS: BASOPHILS % (AUTO) 0.7 % (0.0-5.0); EOSINOPHILS % (AUTO) 0.2 % (0.0-8.0); HEMATOCRIT 30.9 % (36-48); LYMPHOCYTES % (AUTO) 14.3 % (21.0-51.0); MEAN CORPUSCULAR HEMOGLOBIN 27.8 pg (27.0-33.0); MEAN CORPUSCULAR HGB CONC 32.6 g/dL (32.0-36.0); MEAN CORPUSCULAR VOLUME 85.2 fL (79-99); MONOCYTES % (AUTO) 5.9 % (3.0-13.0); NEUTROPHILS % (AUTO) 78.9 % (40.0-77.0); NUCLEATED RED BLOOD CELLS 0.1 % (0.0-0.19); PLATELET COUNT (AUTO) 549 K/uL (130-400); RED BLOOD CELL COUNT(AUTO) 3.62 MIL/uL (4.00-5.50); RED CELL DISTRIBUTION WIDTH 13.6 % (11.0-15.5); WHITE BLOOD COUNT (AUTO) 5.2 K/uL (4.8-10.8)
--- NOTE | 2018-04-02 05:40 | NUR ---
BLOOD SUGAR PCP INFORMS ART OBJECTS SUPERVISOR THAT PT'S BLOOD SUGAR IS =26. LAB CALLED WITH CRITICAL VALUE=35. PT IS ASLEEP AND VERY DIFFICULT TO AWAKEN. IV D50 1 AMP GIVEN. KEPT COMFORTABLE IN BED. WILL RE-CHECK BLOOD SUGAR.
[2018-04-02] MEDS ORDERED: DEXTROSE 50%-WATER 50 ML DISP.SYRIN IV ONE (05:42)
[2018-04-02 05:45] LABS: CREATININE 0.9 mg/dL (0.5-1.5); MAGNESIUM 1.8 mg/dL (1.80-2.40); POTASSIUM 4.1 mmol/L (3.5-5.1)
[2018-04-02] MEDS ORDERED: GLUCAGON 1MG KIT 1 MG ML IM PRN (06:00)
[2018-04-02] MEDS ORDERED: DEXTROSE 50%-WATER 50 ML DISP.SYRIN IV PRN (06:00)
--- NOTE | 2018-04-02 06:00 | NUR ---
RE-CHECK BLOOD SUGAR RE-VDUDX=027. NO DISTRESS NOTED. STILL VERY SLEEPY BUT ANSWERS APPROPRIATELY. KEPT NPO. DUE MEDS ADMINISTERED, HELD HUMALOG AND IV MAGNESIUM GIVEN. FOR MORE CARE.
[2018-04-02] MEDS: METOCLOPRAMIDE 10 MG/2 ML VIAL IVP SCH ×3 (06:06→15:53)
[2018-04-02] MEDS: INSULIN LISPRO 100 UNIT/ML 3ML SQ SCH (06:06)
[2018-04-02] MEDS: MAGNESIUM 2GM PREMIX 50ML 50 ML IV PRN (06:06)
--- NOTE | 2018-04-02 07:40 | NUR ---
RECEIVED IN BED RIGHT SIDE LYING ASLEEP WITH UNCLE AT THE BEDSIDE. NO ACUTE DISTRESS OBSERVED. IV FLUID IS INFUSING WITHOUT PROBLEM. CURRENTLY NPO FOR PROCEDURE.
[2018-04-02 08:00] VITALS: BP 98/72
[2018-04-02] MEDS: LIPASE/PROTEASE/AMYLASE 5000/17000/24000 PO SCH ×3 (08:00→15:52)
--- NOTE | 2018-04-02 08:50 | NUR ---
DR GORDON ROUNDED ON THE PATIENT AND REPORT WAS GIVEN TO HIM ABOUT THE PATIENT CURRENT STATUS.
[2018-04-02] MEDS: THIAMINE HCL 100 MG/ML 2ML VIAL IVP SCH (09:00)
[2018-04-02] MEDS: THIAMINE HCL 100 MG TABLET PO SCH (09:00)
[2018-04-02] MEDS: ENOXAPARIN SODIUM 30 MG/0.3 ML SQ SCH (09:00)
[2018-04-02] MEDS: MEGESTROL 400 MG/10 ML UDCUP PO SCH (09:00)
[2018-04-02] MEDS: PREGABALIN 25 MG CAP PO SCH (09:00)
[2018-04-02] MEDS: ASCORBIC ACID 500 MG TAB PO SCH (09:00)
[2018-04-02] MEDS: MAGNESIUM OXIDE 400 MG TABLET PO SCH (09:00)
[2018-04-02] MEDS: MIDODRINE HCL 5 MG TABLET PO SCH ×3 (09:00→21:05)
[2018-04-02] MEDS: LIDOCAINE 5% TOPICAL PATCH TP SCH (10:03)
[2018-04-02] MEDS: VANCOMYCIN 500MG+NS 100ML 100 ML IV SCH ×2 (10:03→21:03)
[2018-04-02] MEDS: FAMOTIDINE/PF 20 MG/2 ML VIAL IV SCH ×2 (10:03→21:05)
[2018-04-02] MEDS: ZINC OXIDE OINT 30GM TUBE TP SCH ×4 (10:03→21:00)
[2018-04-02] MEDS: IRON SUCROSE COMPLEX 100 MG in SODIUM CHLORIDE 0.9% 50 ML IV SCH (10:12)
[2018-04-02] MEDS: SODIUM CHLORIDE 0.9% 1000ML 1,000 ML IV SCH (11:05)
[2018-04-02] MEDS ORDERED: DEXTROSE 5 % AND 0.9 % NACL 1,000 ML IV ONE (11:23)
[2018-04-02] MEDS: INSULIN HUMULIN R 100 UNIT/ML 3ML SQ SCH ×3 (11:30→21:25)
[2018-04-02] MEDS ORDERED: DEXTROSE 50%-WATER 25 GM/50 ML VIAL IV PRN (11:45)
[2018-04-02 12:00] VITALS: BP 111/86
--- NOTE | 2018-04-02 12:39 | NUR ---
TAKEN TO RADIOLOGY VIA BED FOR SCHEDULED PROCEDURE.
[2018-04-02] MEDS: HYDROMORPHONE 1 MG/1 ML AMP IVP PRN (15:55)
[2018-04-02 16:00] VITALS: BP 100/70
[2018-04-02 19:20] VITALS: BP 108/74
[2018-04-02] MEDS: HYDROCODONE/ACETAMINOPHEN 5/325 MG TAB PO PRN (21:06)
[2018-04-02 23:20] VITALS: BP 124/85
[2018-04-03] MEDS: HYDROMORPHONE 1 MG/1 ML AMP IVP PRN ×3 (00:03→16:55)
[2018-04-03 03:00] VITALS: BP 109/78
[2018-04-03] MEDS: ZOSYN 3.375GM+NS 50ML 50 ML IV SCH ×3 (05:01→22:07)
[2018-04-03] MEDS: SODIUM CHLORIDE 0.9% 1000ML 1,000 ML IV SCH (05:02)
[2018-04-03] MEDS: METOCLOPRAMIDE 10 MG/2 ML VIAL IVP SCH ×3 (06:57→16:53)
[2018-04-03] MEDS: INSULIN HUMULIN R 100 UNIT/ML 3ML SQ SCH ×4 (07:00→22:24)
[2018-04-03 08:00] VITALS: BP 108/84
[2018-04-03] MEDS: IRON SUCROSE COMPLEX 100 MG in SODIUM CHLORIDE 0.9% 50 ML IV SCH (08:35)
[2018-04-03] MEDS: MEGESTROL 400 MG/10 ML UDCUP PO SCH (08:36)
[2018-04-03] MEDS: FAMOTIDINE/PF 20 MG/2 ML VIAL IV SCH ×2 (08:36→22:06)
[2018-04-03] MEDS: ASCORBIC ACID 500 MG TAB PO SCH (08:43)
[2018-04-03] MEDS: MIDODRINE HCL 5 MG TABLET PO SCH ×3 (08:44→22:06)
[2018-04-03] MEDS: LIPASE/PROTEASE/AMYLASE 5000/17000/24000 PO SCH ×3 (08:44→16:53)
[2018-04-03] MEDS: MAGNESIUM OXIDE 400 MG TABLET PO SCH (08:44)
[2018-04-03] MEDS: PREGABALIN 25 MG CAP PO SCH (08:44)
[2018-04-03] MEDS: THIAMINE HCL 100 MG TABLET PO SCH (08:45)
[2018-04-03] MEDS: LIDOCAINE 5% TOPICAL PATCH TP SCH (08:45)
[2018-04-03] MEDS: ZINC OXIDE OINT 30GM TUBE TP SCH ×4 (08:46→21:00)
[2018-04-03] MEDS: THIAMINE HCL 100 MG/ML 2ML VIAL IVP SCH (08:58)
[2018-04-03] MEDS: ENOXAPARIN SODIUM 30 MG/0.3 ML SQ SCH (08:59)
[2018-04-03] MEDS ORDERED: KETOROLAC TROMETHAMINE 15MG/ML IV PRN (09:00)
[2018-04-03] MEDS: VANCOMYCIN 500MG+NS 100ML 100 ML IV SCH ×2 (09:21→22:06)
[2018-04-03 12:00] VITALS: BP 102/71
[2018-04-03] MEDS: HYDROCODONE/ACETAMINOPHEN 5/325 MG TAB PO PRN ×2 (14:14→22:07)
[2018-04-03 16:00] VITALS: BP 115/76
[2018-04-03 20:00] VITALS: BP 113/76
[2018-04-04] VITALS: BP 109/80
[2018-04-04] MEDS: HYDROMORPHONE 1 MG/1 ML AMP IVP PRN ×3 (00:25→18:36)
[2018-04-04 04:32] VITALS: BP 114/86
[2018-04-04] MEDS: ZOSYN 3.375GM+NS 50ML 50 ML IV SCH (05:31)
[2018-04-04] MEDS: METOCLOPRAMIDE 10 MG/2 ML VIAL IVP SCH ×3 (06:50→16:35)
[2018-04-04] MEDS: INSULIN HUMULIN R 100 UNIT/ML 3ML SQ SCH ×4 (06:54→20:47)
[2018-04-04] MEDS: THIAMINE HCL 100 MG/ML 2ML VIAL IVP SCH (07:34)
[2018-04-04 08:00] VITALS: BP 110/79
[2018-04-04] MEDS: ENOXAPARIN SODIUM 30 MG/0.3 ML SQ SCH (09:00)
[2018-04-04] MEDS: MEGESTROL 400 MG/10 ML UDCUP PO SCH (10:11)
[2018-04-04] MEDS: FAMOTIDINE/PF 20 MG/2 ML VIAL IV SCH ×2 (10:11→20:41)
[2018-04-04] MEDS: MAGNESIUM OXIDE 400 MG TABLET PO SCH (10:11)
[2018-04-04] MEDS: ASCORBIC ACID 500 MG TAB PO SCH (10:12)
[2018-04-04] MEDS: IRON SUCROSE COMPLEX 100 MG in SODIUM CHLORIDE 0.9% 50 ML IV SCH (10:12)
[2018-04-04] MEDS: MIDODRINE HCL 5 MG TABLET PO SCH ×3 (10:12→20:41)
[2018-04-04] MEDS: PREGABALIN 25 MG CAP PO SCH (10:12)
[2018-04-04] MEDS: THIAMINE HCL 100 MG TABLET PO SCH (10:13)
[2018-04-04] MEDS: LIDOCAINE 5% TOPICAL PATCH TP SCH (10:13)
[2018-04-04] MEDS: LIPASE/PROTEASE/AMYLASE 5000/17000/24000 PO SCH ×3 (10:14→16:36)
[2018-04-04] MEDS: ZINC OXIDE OINT 30GM TUBE TP SCH ×4 (10:37→21:00)
[2018-04-04] MEDS: SODIUM CHLORIDE 0.9% 1000ML 1,000 ML IV SCH (11:00)
[2018-04-04 12:00] VITALS: BP 108/80
[2018-04-04] MEDS: HYDROCODONE/ACETAMINOPHEN 5/325 MG TAB PO PRN ×2 (12:32→20:42)
[2018-04-04 16:00] VITALS: BP 120/88
[2018-04-04 19:55] VITALS: BP 144/99
[2018-04-05 00:12] VITALS: BP 115/79
[2018-04-05 04:00] VITALS: BP 128/89
[2018-04-05] MEDS: HYDROMORPHONE 1 MG/1 ML AMP IVP PRN ×2 (04:50→10:29)
[2018-04-05] MEDS: METOCLOPRAMIDE 10 MG/2 ML VIAL IVP SCH ×3 (06:34→17:32)
[2018-04-05] MEDS: INSULIN HUMULIN R 100 UNIT/ML 3ML SQ SCH ×3 (06:38→17:40)
[2018-04-05 08:08] VITALS: BP 130/86
[2018-04-05] MEDS ORDERED: LIDOP TP (08:20)
[2018-04-05] MEDS ORDERED: Midodrine Hcl PO (08:20)
[2018-04-05] MEDS: LIDOCAINE 5% TOPICAL PATCH TP SCH (08:54)
[2018-04-05] MEDS: PREGABALIN 25 MG CAP PO SCH (08:55)
[2018-04-05] MEDS: MAGNESIUM OXIDE 400 MG TABLET PO SCH (08:55)
[2018-04-05] MEDS: MEGESTROL 400 MG/10 ML UDCUP PO SCH (08:55)
[2018-04-05] MEDS: THIAMINE HCL 100 MG TABLET PO SCH (08:55)
[2018-04-05] MEDS: MIDODRINE HCL 5 MG TABLET PO SCH ×2 (08:56→13:35)
[2018-04-05] MEDS: ASCORBIC ACID 500 MG TAB PO SCH (08:56)
[2018-04-05] MEDS: ENOXAPARIN SODIUM 30 MG/0.3 ML SQ SCH (08:56)
[2018-04-05] MEDS: LIPASE/PROTEASE/AMYLASE 5000/17000/24000 PO SCH ×3 (08:57→17:33)
[2018-04-05] MEDS: THIAMINE HCL 100 MG/ML 2ML VIAL IVP SCH (08:57)
[2018-04-05] MEDS: FAMOTIDINE/PF 20 MG/2 ML VIAL IV SCH (08:57)
[2018-04-05] MEDS: IRON SUCROSE COMPLEX 100 MG in SODIUM CHLORIDE 0.9% 50 ML IV SCH ×2 (09:08→09:12)
[2018-04-05 12:14] VITALS: BP_SYST 123; BP_SYST 99; BP_DIAS 57; BP_DIAS 88
--- NOTE | 2018-04-05 12:23 | NUR ---
Nutrition follow-up: Pt. on 75gm CCD No Gluten with snacks / ProMod TID. Pt. reports tolerating diet well. Pt. voiced food preferences. Labs reviewed(Alb 1.4). LBM: 04/05/18. SR-15, gen. bernardo-area redness. Recommendations: 1) Continue current diet and ProMod supp. 2) Continue to monitor pt's nutritional status. 3) Consult RD as nutrition concerns arise. Addendum: 04/05/18 at [address] Amended: Links added.
[2018-04-05] MEDS: ZINC OXIDE OINT 30GM TUBE TP SCH ×3 (13:00→17:32)
[2018-04-05] MEDS: ERGOCALCIFEROL (VITAMIN D2) 50,000 UNIT CAPSULE PO SCH (13:35)
[2018-04-05] MEDS: HYDROCODONE/ACETAMINOPHEN 5/325 MG TAB PO PRN (13:54)
[2018-04-05 15:30] VITALS: BP 119/82
--- NOTE | 2018-04-05 16:28 | NUR ---
DC PLAN DC PLAN REMAINS HOME- PT SELF PAY, NO REHAB REFERRAL; GAVE DC SUMMARY AND PT NOTES TO PT TO TAKE TO SEE IF SHE COULD GET DISABILITY. PT HAS BEEN ON DILAUDID FOR SEVERAL DAYS HERE- ASKED DID SHE HAVE REPLACEMENT OPIOID AT HOME?- PT STATES HAS CODEINE SYRUP AT HOME AND WILL FOLLOW UP WITH HER PCP SUNDAY Addendum: 04/07/18 at 1631 by RAEANN LARA RN CM Amended: Links added.
== END 2018-04-05 19:45 | disposition home or self-care (01) | DRG 871 ==
LOC: EDH 20:35 → EDHIP 20:36 → 2BH 03-27 15:33 → 3CH 03-30 16:18
PROVIDERS: ADMIT Internal Medicine; ATTEND Internal Medicine
PROC: 02HV33Z Insertion of Infusion Device into Superior Vena Cava, Percutaneous Approach (ICD-10-PCS; 2018-03-28)
PROC: 30233N1 Transfusion of Nonautologous Red Blood Cells into Peripheral Vein, Percutaneous Approach (ICD-10-PCS; 2018-03-30)
PROC: 0DB98ZX Excision of Duodenum, Via Natural or Artificial Opening Endoscopic, Diagnostic (ICD-10-PCS; principal; 2018-03-31)
PROC: 0DB68ZX Excision of Stomach, Via Natural or Artificial Opening Endoscopic, Diagnostic (ICD-10-PCS; 2018-03-31)
PROC: 0DBM8ZX Excision of Descending Colon, Via Natural or Artificial Opening Endoscopic, Diagnostic (ICD-10-PCS; 2018-03-31)
PROC: 0DBN8ZX Excision of Sigmoid Colon, Via Natural or Artificial Opening Endoscopic, Diagnostic (ICD-10-PCS; 2018-03-31)
PROC: 0DBP8ZX Excision of Rectum, Via Natural or Artificial Opening Endoscopic, Diagnostic (ICD-10-PCS; 2018-03-31)
DX: A41.9 Sepsis, unspecified organism (principal); E43 Unspecified severe protein-calorie malnutrition; E87.0 Hyperosmolality and hypernatremia; K86.1 Other chronic pancreatitis; K52.9 Noninfective gastroenteritis and colitis, unspecified; E86.0 Dehydration; E87.5 Hyperkalemia; E83.42 Hypomagnesemia; K31.89 Other diseases of stomach and duodenum; D50.9 Iron deficiency anemia, unspecified; R15.9 Full incontinence of feces; L89.151 Pressure ulcer of sacral region, stage 1; D53.9 Nutritional anemia, unspecified; E10.649 Type 1 diabetes mellitus with hypoglycemia without coma; E83.39 Other disorders of phosphorus metabolism; J44.9 Chronic obstructive pulmonary disease, unspecified; Z68.22 Body mass index [BMI] 22.0-22.9, adult; Z79.4 Long term (current) use of insulin; Z91.013 Allergy to seafood; Z91.018 Allergy to other foods; Z83.3 Family history of diabetes mellitus; Z82.49 Family history of ischemic heart disease and other diseases of the circulatory system
CPT/HCPCS: 36415; 36430; 36600; 43232; 45380; 71045; 72100; 74170; 78264; 80048; 80053; 80076; 80202; 80305; 81001; 81025; 82009; 82270; 82306; 82435; 82550; 82607; 82656; 82728; 82746; 82784; 82803; 82947; 82948; 83036; 83516; 83540; 83550; 83605; 83690; 83735; 83930; 84100; 84132; 84295; 84443; 85014; 85018; 85025; 85027; 85610; 85730; 86850; 86900; 86901; 86922; 87040; 88305; 88313; 93005; 97039; A9541; C1894; G0378; J0330; J0456; J0696; J0780; J0885; J1170; J1650; J1756; J1815; J1885; J2543; J2704; J2765; J3370; J3411; J3475; J3480; J3490; J7030; J7042; J7070; P9016; Q9967

== ENCOUNTER 2018-04-08 09:48 | Observation (INO) | payer OTHER ==
[~2018-04-08] VITALS: Ht 154.9 cm; Wt 40.8 kg
[~2018-04-08 09:48] MED LIST changes: +INSREG SQ; +LIDOP TP; +LIPA1CAP36 PO; +METO5TAB2 PO; +MIRT15TA6 PO; +[UNRECOGNIZED DRUG - REMARK] PO
[2018-04-08] MEDS ORDERED: DEXTROSE 50%-WATER 50 ML DISP.SYRIN IV ONE (09:55)
[2018-04-08 10:16] LABS: BASOPHILS % (AUTO) 0.5 % (0.0-5.0); EOSINOPHILS % (AUTO) 3.2 % (0.0-8.0); HEMATOCRIT 32.4 % (36-48); LYMPHOCYTES % (AUTO) 15.1 % (21.0-51.0); MEAN CORPUSCULAR HEMOGLOBIN 28.4 pg (27.0-33.0); MEAN CORPUSCULAR HGB CONC 32.5 g/dL (32.0-36.0); MEAN CORPUSCULAR VOLUME 87.4 fL (79-99); MONOCYTES % (AUTO) 7.8 % (3.0-13.0); NEUTROPHILS % (AUTO) 73.4 % (40.0-77.0); PLATELET COUNT (AUTO) 261 K/uL (130-400); WHITE BLOOD COUNT (AUTO) 4.8 K/uL (4.8-10.8)
[2018-04-08 10:27] LABS: CREATININE 0.6 mg/dL (0.5-1.5); INR 0.91 (0.85-1.15); PARTIAL THROMBOPLASTIN TIME 28.5 SEC (26.3-35.5); PROTHROMBIN TIME 9.6 SEC (9.6-11.6)
[2018-04-08 10:31] LABS: ALBUMIN 2.1 g/dL (3.5-5.0); BILIRUBIN,TOTAL 0.2 mg/dL (0.2-1.0); TOTAL PROTEIN, SERUM 7.2 g/dL (6.0-8.3)
[2018-04-08] MEDS ORDERED: ONDANSETRON HCL 4 MG/2 ML VIAL IV PRN (11:45)
[2018-04-08] MEDS ORDERED: HYDRALAZINE HCL 20 MG/ML VIAL IV PRN (11:45)
[2018-04-08] MEDS ORDERED: ACETAMINOPHEN 325 MG TAB PO PRN ×2 (11:45)
[2018-04-08] MEDS ORDERED: MEGESTROL 400 MG/10 ML UDCUP PO SCH (12:00)
[2018-04-08 12:06] LABS: HEMOGLOBIN A1C 11.6 % (4.0-6.0)
[2018-04-08 12:15] LABS: MAGNESIUM 0.6 mg/dL (1.80-2.40); PHOSPHORUS 3.3 mg/dL (2.5-4.9)
[2018-04-08] MEDS ORDERED: MAGNESIUM 2GM PREMIX 50ML 100 ML IV ONE (13:05)
[2018-04-08] MEDS ORDERED: PERMETHRIN LOTION 1% 59ML BOTTLE TP SCH (13:30)
[2018-04-08] MEDS ORDERED: PHARMACY COMMUNICATION MISC SCH (13:30)
[2018-04-08] MEDS ORDERED: LIPASE/PROTEASE/AMYLASE 5000/17000/24000 PO SCH (14:00)
[2018-04-08] MEDS ORDERED: FERROUS SULFATE 325 MG TABLET.DR PO SCH (14:00)
[2018-04-08] MEDS ORDERED: METOCLOPRAMIDE 5 MG TABLET PO SCH (14:00)
[2018-04-08] MEDS ORDERED: METOCLOPRAMIDE 5 MG TABLET ONE (17:42)
[2018-04-08] MEDS ORDERED: MEGE40 PO (19:33)
[2018-04-08 21:00] VITALS: BP 92/64
[2018-04-08] MEDS ORDERED: FAMOTIDINE 20MG TAB 20 MG TAB PO SCH (21:00)
[2018-04-08] MEDS ORDERED: MIRTAZAPINE 15 MG TABLET PO SCH (21:00)
[2018-04-09] MEDS ORDERED: LIDOCAINE 5% TOPICAL PATCH TP SCH (09:00)
[2018-04-09] MEDS ORDERED: FOLIC ACID 1 MG TABLET PO SCH (09:00)
[2018-04-09] MEDS ORDERED: CYANOCOBALAMIN (VITAMIN B-12) 1,000 MCG TABLET PO SCH (09:00)
[2018-04-09] MEDS ORDERED: ENOXAPARIN SODIUM 40 MG/0.4 ML SYRINGE SQ SCH (09:00)
[2018-04-09] MEDS ORDERED: [UNRECOGNIZED DRUG - OTHER] PO SCH (09:00)
== END 2018-04-08 21:51 | disposition home or self-care (01) ==
LOC: EDH 09:48 → EDHIP 11:44
PROVIDERS: ADMIT Internal Medicine; ATTEND Internal Medicine
DX: E10.649 Type 1 diabetes mellitus with hypoglycemia without coma (principal); E83.42 Hypomagnesemia; G89.4 Chronic pain syndrome; J44.9 Chronic obstructive pulmonary disease, unspecified; K86.1 Other chronic pancreatitis; K90.9 Intestinal malabsorption, unspecified; L30.9 Dermatitis, unspecified; Z85.9 Personal history of malignant neoplasm, unspecified; Z79.4 Long term (current) use of insulin; Z82.49 Family history of ischemic heart disease and other diseases of the circulatory system; Z83.3 Family history of diabetes mellitus; Z88.8 Allergy status to other drugs, medicaments and biological substances; Z91.018 Allergy to other foods
CPT/HCPCS: 36415; 80053; 82150; 82550; 82948 ×7; 83036; 83690; 83735; 84100; 85025; 85610; 85730; 93005; 99284; G0378 ×10; J3475; J7070

== ENCOUNTER 2018-04-17 11:11 | Emergency (ER) | payer OTHER ==
[~2018-04-17 11:11] MED LIST changes: -INSU100V3 SQ; +MEGE40 PO; -NPH,100V SQ; -PANCREATIC ENZYMES PO
[2018-04-17 12:04] LABS: BASOPHILS % (AUTO) 0.8 % (0.0-5.0); EOSINOPHILS % (AUTO) 0.4 % (0.0-8.0); LYMPHOCYTES % (AUTO) 8.8 % (21.0-51.0); MEAN CORPUSCULAR HEMOGLOBIN 28.5 pg (27.0-33.0); MEAN CORPUSCULAR VOLUME 86.3 fL (79-99); MONOCYTES % (AUTO) 3.5 % (3.0-13.0); NEUTROPHILS % (AUTO) 86.5 % (40.0-77.0); NUCLEATED RED BLOOD CELLS 0.1 % (0.0-0.19); PLATELET COUNT (AUTO) 261 K/uL (130-400); RED BLOOD CELL COUNT(AUTO) 4.29 MIL/uL (4.00-5.50); RED CELL DISTRIBUTION WIDTH 17.2 % (11.0-15.5); WHITE BLOOD COUNT (AUTO) 7.8 K/uL (4.8-10.8)
[2018-04-17 12:26] LABS: CREATININE 1.1 mg/dL (0.5-1.5); POTASSIUM 3.9 mmol/L (3.5-5.1)
[2018-04-17] MEDS ORDERED: HYDROCODONE/ACETAMINOPHEN 10/325 MG TAB ONE (12:45)
[2018-04-17 13:25] LABS: APPEARANCE,URINE CLOUDY (CLEAR); BILIRUBIN,URINE NEGATIVE (NEGATIVE); COLOR,URINE YELLOW (YELLOW); GLUCOSE, URINE (UA) >=1000 mg/dL (NEGATIVE); KETONES,URINE NEGATIVE (NEGATIVE); LEUKOCYTE ESTERASE ,URINE TRACE (NEGATIVE); NITRATE,URINE NEGATIVE (NEGATIVE); OCCULT BLOOD,URINE NEGATIVE (NEGATIVE); PH,URINE 5.5 (5.0-8.0); PROTEIN,URINE NEGATIVE (NEGATIVE); UROBILINOGEN,URINE 0.2 mg/dL (0.2-1.0)
[2018-04-17 13:37] LABS: BACTERIA,URINE Many /HPF (None Seen); RBC,URINE 0-1 /HPF (0-1); SQUAMOUS EPITHELIAL CELL,UR Rare /HPF (0-2); WBC,URINE 0-1 /HPF (0-1)
[2018-04-17] MEDS ORDERED: INSULIN HUMULIN R 100 UNIT/ML 3ML ONE (13:48)
== END 2018-04-17 14:19 | disposition home or self-care (01) ==
LOC: EDH 11:11
DX: S80.02XA Contusion of left knee, initial encounter (principal); S70.02XA Contusion of left hip, initial encounter; E11.65 Type 2 diabetes mellitus with hyperglycemia; Z79.4 Long term (current) use of insulin; Z90.49 Acquired absence of other specified parts of digestive tract; Z91.013 Allergy to seafood; Z91.018 Allergy to other foods; W01.0XXA Fall on same level from slipping, tripping and stumbling without subsequent striking against object, initial encounter; Y93.89 Activity, other specified; Y92.091 Bathroom in other non-institutional residence as the place of occurrence of the external cause; Y99.8 Other external cause status
CPT/HCPCS: 36415; 71045; 73502; 73562; 80048; 81001; 81025; 82948; 85025; 93005; 96372; 99284; J1815